=== PATIENT | female | born 1940 | race Caucasian/White ===

== ENCOUNTER 2018-05-19 08:54 | Outpatient (CLI) | payer MEDICARE, OTHER ==
--- NOTE | 2018-05-19 10:25 | RAD ---
PA AND LATERAL CHEST: HISTORY: Preop. FINDINGS: Heart size within normal limits. There are atherosclerotic changes of the aorta. Calcified aorticop ulmonary window lymph node is seen. Lungs are clear of infiltrates. The bones appear demineralized. IMPRESSION: No active intrathoracic disease. POS: [facility]
== END 2018-05-19 08:55 | disposition home or self-care (01) ==
LOC: SCSRAD 08:54
PROVIDERS: ATTEND Otolaryngology Plastic Surgery within the Head & Neck
DX: J35.02 Chronic adenoiditis (principal)
CPT/HCPCS: 71046

== ENCOUNTER 2018-10-03 04:00 | Emergency (ER) | payer MEDICARE, OTHER ==
[2018-10-03] MEDS ORDERED: Morphine 4 MG/ML VIAL ONE ×2 (04:21→05:37)
[2018-10-03] MEDS ORDERED: Ketorolac Tromethamine 30 MG/ML VIAL ONE (04:21)
[2018-10-03] MEDS ORDERED: Ondansetron PF 4 MG/2 ML Vial ONE (04:28)
[2018-10-03 04:29] LABS: #Basophils 0.1 thou/uL (0.0-0.2); #Eosinphils 0.1 thou/uL (0.0-0.7); #Lymphocytes 3.7 thou/uL (1.20-3.40); #Monocytes 0.7 thou/uL (0.11-0.59); #Neutrophils 2.9 thou/uL (1.40-6.50); %Basophils 1.2 % (0.0-1.0); %Eosinophils 1.9 % (0.0-10.0); %Lymphocytes 49.4 % (21.0-51.0); %Monocytes 8.7 % (0.0-10.0); %Neutrophils 38.7 % (42.0-75.0); Hemoglobin 13.7 g/dL (12.0-16.0); Mean Corpuscular Hemoglobin 32.2 pg (27.0-31.0); Mean Platelet Volume 5.6 fL (7.4-10.4); Platelet Count 318 thou/uL (130-400); RBC Distribution Width 11.9 % (11.5-14.5); Red Blood Cell (RBC) Count 4.25 mill/uL (4.20-5.40); White Blood Cell (WBC) Count 7.5 thou/uL (4.8-10.8)
[2018-10-03 04:44] LABS: ALT (SGPT) 12 U/L (8-55); AST (SGOT) 16 U/L (5-34); Albumin 4.1 g/dL (3.4-4.8); Alkaline Phosphatase 91 U/L (40-150); Anion Gap 17 mmol/L (10-20); BUN (Urea Nitrogen) 28 mg/dL (9.8-20.1); Bilirubin, Total 0.8 mg/dL (0.2-1.2); Calc. Creatinine Clearance 0 mL/min (70-130); Calcium 9.8 mg/dL (7.8-10.44); Carbon Dioxide 18 mmol/L (23-31); Chloride 108 mmol/L (98-107); Estimated GFR-MDRD 68; Globulin 3.3 g/dL (2.4-3.5); Glucose 92 mg/dL (83-110); Lipase 32 U/L (8-78); Potassium 3.9 mmol/L (3.5-5.1); Protein, Total 7.4 g/dL (6.0-8.3); Sodium 139 mmol/L (136-145)
[2018-10-03 05:23] LABS: Bilirubin Negative (Negative); Blood, Urine Negative (Negative); Clarity Clear (Clear); Glucose, Urine (Dipstick) Negative (Negative); Leukocyte Trace (Negative); Nitrite Negative (Negative); Protein, Urine (Dipstick) Negative (Neg-Trace); Urobilinogen 0.2 mg/dL (Less than 2)
[2018-10-03 05:31] LABS: Bacteria/HPF 1+ HPF (None Seen); RBC/HPF None Seen HPF (0-3); Squamous Epithelial 0-3 HPF (0-3); WBC/HPF 0-3 HPF (0-3)
[2018-10-03 05:32] LABS: Yeast-Budding Rare HPF (None Seen)
--- NOTE | 2018-10-03 08:17 | CT ---
CT ABDOMEN AND PELVIS WITHOUT IV CONTRAST: Date: 10/03/18 INDICATION: Left-sided flank pain. COMPARISON: None. FINDINGS: Lung bases are clear. There are calcified granuloma within the liver and spleen. Unopacified pancreas and adrenal glands are unremarkable appearing. No renal or ureteral calculus is evident. No hydronephrosis is demonstrated. There are mild to moderate calcifications involving the abdominal aorta. No free fluid or enlarged lymph nodes are evident. Bladder, rectum, and perirectal soft tissues are unremarkable appearing. There is scattered diverticula involving the colon without evidence of active diverticulitis. There i s a normal appendix in the right lower quadrant of the abdomen. The reproductive structures are not identified and presumed to be surgically absent. Superior end plate compression abnormality of T12 is stable to a CT of the thorax dated 11/16/12. No acute osseous abnormality is evident. IMPRESSION: No acute abnormality. POS: BH
== END 2018-10-03 05:52 | disposition home or self-care (01) ==
LOC: SCSER 04:00
DX: M62.830 Muscle spasm of back (principal)
CPT/HCPCS: 74176; 80053; 81003; 81015; 82550; 83690; 85025; 87086; 96361; 96374; 96375; 96376; J1885; J2270; J2405

== ENCOUNTER 2019-04-24 08:56 | Outpatient (CLI) | payer MEDICARE, OTHER ==
--- NOTE | 2019-04-24 10:00 | MRI ---
MRI cervical spine noncontrast: DATE: 04/24/2019 HISTORY: 78-year-old female with cervical radiculopathy and cervicalgia. COMPARISON: 05/15/2016 FINDINGS: Cervical spinal cord is normal in size and signal. Vertebral body heights are maintained. No major edward ne marrow signal abnormality, except mild bone marrow edema at the right inferior articular facet of T1, which is new since the prior MRI. Also, mild edema at the inferior endplate of T2 associated w ith mild broad indentation of the inferior endplate of T2. This is probably an acute Schmorl's node. Multilevel bilateral mild and moderate degenerative facet disease. This is greatest on the left at C4-5. Mild disc space narrowing at C4-5, C5-6, and C6-7. No severe disc space narrowing at any level. Mild chronic grade 1 anterolisthesis of C4 on C5 due to facet DJD is unchanged. C1-2: No central stenosis. C2-3: No central or neural foraminal stenosis. C3-4: No central stenosis. No right neural foraminal stenosis. Moderate left neural foraminal stenosi s. C4-5: Chronic grade 1 anterolisthesis unchanged. Mild central spinal canal stenosis. Small bilateral uncinate process osteophytes. Mild bilateral neural foraminal stenosis. C5-6: No central stenosis. Small bilateral uncinate process osteophytes. Mild bilateral neural forami nal stenosis, left greater than right. C6-7: Small bilateral uncinate process osteophytes, left greater than right. No central stenosis. Mil d bilateral neural foraminal stenosis, left greater than right. C7-T1: Essentially normal. No interval change regarding spinal canal and neural foraminal caliber. IMPRESSION: 1. Mild bone marrow edema associated with what is probably an acute or subacute Schmorl's node at the inferior endplate of T2. 2. No other interval change. 3. Mild-moderate cervical spondylosis. 4. No high-grade central spinal canal stenosis at any level.
--- NOTE | 2019-04-24 12:20 | RAD ---
EIGHT VIEWS CERVICAL SPINE: INDICATION: A 78-year-old female with spondylolisthesis and cervical radiculopathy. COMPARISON: None. FINDINGS: Cervical spine in the lateral projection is evaluated up to T2. There is slight anterior translation of C4 on C5 and C7 on T1. With flexion, there is mild development of anterior translation of C3 on C4. There is accentuation of the anterolisthesis of C4 on C5. The anterolisthesis of C7 on T1 is st able. With extension, the anterolisthesis at all levels is reduced. There is moderate multilevel de generative disk disease. There is advanced facet osteoarthrosis of C3-4 and C4-5 as well as C7-T1. Prevertebral soft tissues are normal appearing. Osseous neural foramina demonstrate mild right osseo us neural foraminal narrowing at C3-4 and mild left osseous neural foraminal narrowing at C3-4 and C4 -5. Lung apices are clear. Lateral masses are symmetric. IMPRESSION: 1. Moderate to severe cervical spondylosis with abnormal translational motion seen at C3-4, C4-5 and C7-T1. All levels of anterolisthesis reduce with extension positioning. 2. Mild neural foraminal narrowing at C3-4 bilaterally and on the left at C4-5 due to facet hypertro phy. POS: CET
== END 2019-04-24 08:57 | disposition home or self-care (01) ==
LOC: BICMRI 08:56
PROVIDERS: ATTEND Anesthesiology Pain Medicine
DX: M43.12 Spondylolisthesis, cervical region (principal); M99.81 Other biomechanical lesions of cervical region; M54.81 Occipital neuralgia; M47.22 Other spondylosis with radiculopathy, cervical region; M48.02 Spinal stenosis, cervical region
CPT/HCPCS: 72052; 72141

== ENCOUNTER 2019-11-15 08:18 | Outpatient (CLI) | payer MEDICARE, OTHER ==
--- NOTE | 2019-11-15 09:33 | MRI ---
MR the lumbar spine without contrast: 11/15/2019 History: Chronic back pain radiating down bilateral lower extremities, radiculopathy COMPARISON: None available TECHNIQUE: Multiplanar multisequence MR images were obtained of lumbar spine without IV contrast FINDINGS: On the basis of 5 lumbar type vertebral bodies, conus medullaris terminates at [id number] level. Sagittal STIR imaging demonstrates mild increased signal intensity involving the facet joints bilater ally at L4-5 consistent with degenerative edema. T12-L1:There is a very small left paracentral disc protrusion. Disc space narrowing with disc desicca tion. No significant central canal or neural foraminal stenosis L1-2:Disc space narrowing and mild disc bulge with no central canal or neural foraminal stenosis L2-3:No central canal or neural foraminal stenosis L3-4:Mild bilateral facet hypertrophy and hypertrophy of the ligamentum flavum. Minimal disc bulge. N o significant central canal or neural foraminal stenosis L4-5:Bilateral facet hypertrophy and hypertrophy of the ligamentum flavum. No significant central can al or neural foraminal stenosis. Mild disc space narrowing and disc desiccation. L5-S1:No significant central canal or neural foraminal stenosis Image retroperitoneal structures demonstrateno acute findings. IMPRESSION: Degenerative change, most prominently involving the facet joints at the L4-5 level. No significant ce ntral canal or neural foraminal stenosis.
== END 2019-11-15 08:19 | disposition home or self-care (01) ==
LOC: SCSMRI 08:18
PROVIDERS: ATTEND Anesthesiology Pain Medicine
DX: M47.26 Other spondylosis with radiculopathy, lumbar region (principal)
CPT/HCPCS: 72148

== ENCOUNTER 2021-12-26 07:34 | Outpatient (CLI) | payer MEDICARE, OTHER | END 2021-12-26 07:35 | disposition home or self-care (01) | LOC: SCSMRI 07:34 | PROVIDERS: ATTEND Anesthesiology Pain Medicine | DX: M47.26 Other spondylosis with radiculopathy, lumbar region (principal); M25.78 Osteophyte, vertebrae; N28.89 Other specified disorders of kidney and ureter | CPT/HCPCS: 72148 ==

== ENCOUNTER 2024-01-08 18:15 | Emergency (ER) | payer MEDICARE, OTHER ==
[2024-01-08] MEDS ORDERED: Acetaminophen 500 MG TAB ONE (19:31)
[2024-01-08] MEDS ORDERED: Morphine 4 MG/ML VIAL ONE (19:32)
[2024-01-08] MEDS ORDERED: Ketorolac Tromethamine 30 MG (1 mL) VIAL ONE (19:32)
[2024-01-08] MEDS ORDERED: Orphenadrine Citrate 60 MG/2 ML VIAL ONE (19:34)
[2024-01-08] MEDS ORDERED: Ondansetron PF 4 MG/2 ML Vial ONE (20:01)
== END 2024-01-08 21:05 | disposition home or self-care (01) ==
LOC: ERS 18:15
DX: M62.830 Muscle spasm of back (principal); I10 Essential (primary) hypertension
CPT/HCPCS: 96374; 96375; 99283; J1885; J2272; J2360; J2405

== ENCOUNTER 2024-04-18 08:03 | Outpatient (CLI) | payer MEDICARE, OTHER | END 2024-04-18 08:04 | disposition home or self-care (01) | LOC: SCSMRI 08:03 | PROVIDERS: ATTEND Otolaryngology Plastic Surgery within the Head & Neck | DX: G50.1 Atypical facial pain (principal); R90.82 White matter disease, unspecified; R93.0 Abnormal findings on diagnostic imaging of skull and head, not elsewhere classified | CPT/HCPCS: 70553; 76376 ==